=== PATIENT | female | born 1995 | race Caucasian/White ===

== ENCOUNTER → 2017-06-02 | Outpatient (CLI) | payer BC ==
--- NOTE | 2017-06-02 21:30 | MR ---
EXAMINATION TYPE: MR knee RT wo con DATE OF EXAM: 06/02/2017 COMPARISON: NONE HISTORY: Right knee pain and swelling for one year per patient. Unspecified internal derangement per order. TECHNIQUE: Multiplanar, multisequence images of the knee is performed without IV contrast. FINDINGS: MEDIAL MENISCUS: Anterior and posterior horns are intact without tear. LATERAL MENISCUS: Anterior and posterior horns are intact without tear. CRUCIATE LIGAMENTS: The anterior and posterior cruciate ligaments are intact and unremarkable. COLLATERAL LIGAMENTS: The medial collateral ligament and lateral collateral ligament complex are inta ct and unremarkable. EXTENSOR MECHANISM: Visualized quadriceps and patellar tendons are intact. EFFUSION: No significant suprapatellar joint effusion. POPLITEAL CYST: No popliteal/delaney cyst. TRICOMPARTMENT SPACES: Tricompartment joint spaces are preserved. No significant spurring is seen. CARTILAGE: Tricompartment articular cartilage is maintained. BONE MARROW SIGNAL: Slight heterogeneity of bone marrow signal intensity may reflect product of red m arrow reconversion. OTHER: No additional significant abnormality is appreciated. IMPRESSION: No meniscal or ligamentous tear is seen. No significant finding is identified to account for patient's symptoms.
== END ==
LOC: RADMRIMAIN 17:40
PROVIDERS: ATTEND Physician Assistant
DX: M23.91 Unspecified internal derangement of right knee (principal)

== ENCOUNTER 2018-08-08 11:25 | Emergency (ER) | payer BC ==
[2018-08-08 11:37] VITALS: RESP 18
[2018-08-08] MEDS ORDERED: SODIUM CHLORIDE 0.9% 1,000 ML IV STA ×2 (12:01)
[2018-08-08 12:34] LABS: Basophils % (A) 1 %; Eosinophils # (A) 0.1 k/uL (0-0.7); Eosinophils % (A) 2 %; HCT 41.4 % (34.0-46.0); HGB 13.6 gm/dL (11.4-16.0); Lymphocytes # (A) 1.3 k/uL (1.0-4.8); Lymphocytes % (A) 21 %; MCH 30.2 pg (25.0-35.0); MCHC 32.8 g/dL (31.0-37.0); MCV 91.9 fL (80.0-100.0); Mean Platelet Volume 8.6; Monocytes # (A) 0.3 k/uL (0-1.0); Monocytes % (A) 4 %; Neutrophils # (A) 4.3 k/uL (1.3-7.7); Neutrophils % (A) 71 %; Platelet Count 225 k/uL (150-450); RBC 4.51 m/uL (3.80-5.40); RDW 12.2 % (11.5-15.5); WBC 6.1 k/uL (3.8-10.6)
[2018-08-08 12:41] LABS: Appearance,Urine Clear (Clear); Bacteria,Urine Rare /hpf; Bilirubin,Urine Negative (Negative); Blood,Urine Trace (Negative); Color,Urine Yellow; Glucose,Urine (UA) Negative (Negative); Ketones,Urine 1+ (Negative); Leukocyte Esterase,Urine Negative (Negative); Mucus,Urine Occasional /hpf; Nitrite,Urine Negative (Negative); PH, Urine 5.5 (5.0-8.0); Protein,Urine Negative (Negative); RBC,Urine 1 /hpf (0-5); Specific Gravity,Urine 1.018 (1.001-1.035); Squamous Epithelial Cell,Urine 2 /hpf (0-4); Urobilinogen,Urine <2.0 mg/dL (<2.0); WBC,Urine 4 /hpf (0-5)
[2018-08-08 12:45] LABS: ALT 28 U/L (9-52); AST 28 U/L (14-36); Albumin 4.7 g/dL (3.5-5.0); Alkaline Phosphatase 54 U/L (38-126); Anion Gap 10 mmol/L; Blood Urea Nitrogen 9 mg/dL (7-17); Calcium 9.7 mg/dL (8.4-10.2); Carbon Dioxide 23 mmol/L (22-30); Chloride 105 mmol/L (98-107); D-Dimer <0.17 mg/L FEU (<0.60); Glucose 80 mg/dL (74-99); Partial Thromboplastin Time 23.6 sec (22.0-30.0); Phosphorus 3.6 mg/dL (2.5-4.5); Potassium 4.1 mmol/L (3.5-5.1); Prothrombin Time 9.9 sec (9.0-12.0); Sodium 138 mmol/L (137-145); Total Bilirubin 0.7 mg/dL (0.2-1.3)
[2018-08-08 12:51] LABS: Amphetamine Screen,Urine Not Detected (NotDetected); Barbiturate Screen,Urine Not Detected (NotDetected); Benzodiazepines Screen,Urine Detected (NotDetected); Cocaine Screen,Urine Not Detected (NotDetected); Methadone Screen, Urine Not Detected (NotDetected); Opiate Screen,Urine Not Detected (NotDetected); Oxycodone Screen, Urine Not Detected (NotDetected); Phencyclidine Screen,Urine Not Detected (NotDetected); Tricyclic Antidepressant,Urine Not Detected (NotDetected); Urn Cannabinoid Scrn Not Detected (NotDetected)
--- NOTE | 2018-08-08 13:03 | ED ---
Arrhythmia/Palpitations HPI - General Chief Complaint: Arrhythmia/Palpitations Stated Complaint: Palpitations Time Seen by Provider: 08/08/18 11:39 Source: patient, RN notes reviewed, old records reviewed Mode of arrival: ambulatory Limitations: no limitations - History of Present Illness Initial Comments: This is a 23-year-old female to the ER for evaluation. She presents today for evaluation regards to palpitations, feeling of her heart beating her chest being 100 chest. Patient's no prior history of similar complaint, denies drugs or alcohol. No recent weight loss awaking, no weight loss supplements, patient states her heart rate was noted in her clinic to be greater than 120. She is doesn't denies having this issue prior. Otherwise patient has no complaints of shortness of breath. There is racing heart valve MD Complaint: rapid heart beat, "heart racing", palpitations -: hour(s) (1) Context: occurred during rest Arrhythmia History: SVT Associated Symptoms: anxiety - Related Data Home Medications Medication Instructions Recorded Confirmed ALPRAZolam [Xanax] 0.5 mg PO DAILY PRN 08/08/18 08/08/18 Aviane 1 tab PO DAILY 08/08/18 08/08/18 Cyclobenzaprine [Flexeril] 5 mg PO BID PRN 08/08/18 08/08/18 Allergies Allergy/AdvReac Type Severity Reaction Status Date / Time Penicillins Allergy Unknown Verified 08/08/18 11:46 Childhood Review of Systems ROS Statement: Those systems with pertinent positive or pertinent negative responses have been documented in the HPI. ROS Other: All systems not noted in ROS Statement are negative. Past Medical History Past Medical History: No Reported History History of Any Multi-Drug Resistant Organisms: None Reported Past Surgical History: No Surgical Hx Reported, Orthopedic Surgery Past Psychological History: No Psychological Hx Reported Smoking Status: Never smoker Past Alcohol Use History: None Reported Past Drug Use History: None Reported General Exam Limitations: no limitations General appearance: alert, in no apparent distress, anxious Head exam: Present: atraumatic, normocephalic, normal inspection Eye exam: Present: normal appearance, PERRL, EOMI. Absent: scleral icterus, conjunctival injection, periorbital swelling ENT exam: Present: normal exam, mucous membranes moist Neck exam: Present: normal inspection. Absent: tenderness, meningismus, lymphadenopathy Respiratory exam: Present: normal lung sounds bilaterally. Absent: respiratory distress, wheezes, rales, rhonchi, stridor Cardiovascular Exam: Present: normal rhythm, tachycardia, normal heart sounds. Absent: systolic murmur, diastolic murmur, rubs, gallop, clicks GI/Abdominal exam: Present: soft, normal bowel sounds. Absent: distended, tenderness, guarding, rebound, rigid Extremities exam: Present: normal inspection, full ROM, normal capillary refill. Absent: tenderness, pedal edema, joint swelling, calf tenderness Back exam: Present: normal inspection Neurological exam: Present: alert, oriented X3, CN II-XII intact Psychiatric exam: Present: normal affect, normal mood Skin exam: Present: warm, dry, intact, normal color. Absent: rash Course Vital Signs 08/08/18 08/08/18 08/08/18 11:34 12:00 13:00 Temperature 97.9 F Pulse Rate 121 H 116 H 86 Respiratory 18 17 17 Rate Blood Pressure 127/83 113/79 116/82 O2 Sat by Pulse 98 98 Oximetry 08/08/18 14:00 Temperature Pulse Rate 95 Respiratory 18 Rate Blood Pressure 120/88 O2 Sat by Pulse Oximetry - Reevaluation(s) Reevaluation #1: 08/08/18 14:39 Medical record is reviewed Patient does admit taking occasional half Xanax for anxiety EKG Findings - EKG Comments: EKG Findings:: EKG shows sinus tachycardia rate 100, MI 160, QRS 80, QTC 447 Medical Decision Making - Medical Decision Making 23 female DEL with tachycardia, patient will follow-up with orthopedics regarding elevated heart rate sinus tachycardia. EKG otherwise within normal limits aside from tachycardia which is improved with hydration, lab work is normal and patient is ok for discharge home - Lab Data Result diagrams: 08/08/18 12:16 08/08/18 12:16 Lab Results 08/08/18 08/08/18 08/08/18 Range/Units 12:16 12:16 12:16 WBC 6.1 (3.8-10.6) k/uL RBC 4.51 (3.80-5.40) m/uL Hgb 13.6 (11.4-16.0) gm/dL Hct 41.4 (34.0-46.0) % MCV 91.9 (80.0-100.0) fL MCH 30.2 (25.0-35.0) pg MCHC 32.8 (31.0-37.0) g/dL RDW 12.2 (11.5-15.5) % Plt Count 225 (150-450) k/uL Neutrophils % 71 % Lymphocytes % 21 % Monocytes % 4 % Eosinophils % 2 % Basophils % 1 % Neutrophils # 4.3 (1.3-7.7) k/uL Lymphocytes # 1.3 (1.0-4.8) k/uL Monocytes # 0.3 (0-1.0) k/uL Eosinophils # 0.1 (0-0.7) k/uL Basophils # 0.0 (0-0.2) k/uL PT (9.0-12.0) sec INR (<1.2) APTT (22.0-30.0) sec D-Dimer (<0.60) mg/L FEU Sodium 138 (137-145) mmol/L Potassium 4.1 (3.5-5.1) mmol/L Chloride 105 (98-107) mmol/L Carbon Dioxide 23 (22-30) mmol/L Anion Gap 10 mmol/L BUN 9 (7-17) mg/dL Creatinine 0.55 (0.52-1.04) mg/dL Est GFR (CKD-EPI)AfAm >90 (>60 ml/min/1.73 sqM) Est GFR (CKD-EPI)NonAf >90 (>60 ml/min/1.73 sqM) Glucose 80 (74-99) mg/dL Plasma Lactic Acid Azam (0.7-2.0) mmol/L Calcium 9.7 (8.4-10.2) mg/dL Phosphorus 3.6 (2.5-4.5) mg/dL Magnesium 2.0 (1.6-2.3) mg/dL Total Bilirubin 0.7 (0.2-1.3) mg/dL AST 28 (14-36) U/L ALT 28 (9-52) U/L Alkaline Phosphatase 54 (38-126) U/L Total Creatine Kinase 81 (30-135) U/L CK-MB (CK-2) 0.3 (0.0-2.4) ng/mL CK-MB (CK-2) Rel Index 0.4 Troponin I <0.012 (0.000-0.034) ng/mL NT-Pro-B Natriuret Pep pg/mL Total Protein 8.0 (6.3-8.2) g/dL Albumin 4.7 (3.5-5.0) g/dL TSH (0.465-4.680) mIU/L Urine Color Urine Appearance (Clear) Urine pH (5.0-8.0) Ur Specific [place] (1.001-1.035) Urine Protein (Negative) Urine Glucose (UA) (Negative) Urine Ketones (Negative) Urine Blood (Negative) Urine Nitrite (Negative) Urine Bilirubin (Negative) Urine Urobilinogen (<2.0) mg/dL Ur Leukocyte Esterase (Negative) Urine RBC (0-5) /hpf Urine WBC (0-5) /hpf Ur Squamous Epith Cells (0-4) /hpf Urine Bacteria (None) /hpf Urine Mucus (None) /hpf Urine Opiates Screen (NotDetected) Ur Oxycodone Screen (NotDetected) Urine Methadone Screen (NotDetected) Ur Propoxyphene Screen (NotDetected) Ur Barbiturates Screen (NotDetected) U Tricyclic Antidepress (NotDetected) Ur Phencyclidine Scrn (NotDetected) Ur Amphetamines Screen (NotDetected) U Methamphetamines Scrn (NotDetected) U Benzodiazepines Scrn (NotDetected) Urine Cocaine Screen (NotDetected) U Marijuana (THC) Screen (NotDetected) 08/08/18 08/08/18 08/08/18 Range/Units 12:16 12:16 12:16 WBC (3.8-10.6) k/uL RBC (3.80-5.40) m/uL Hgb (11.4-16.0) gm/dL Hct (34.0-46.0) % MCV (80.0-100.0) fL MCH (25.0-35.0) pg MCHC (31.0-37.0) g/dL RDW (11.5-15.5) % Plt Count (150-450) k/uL Neutrophils % % Lymphocytes % % Monocytes % % Eosinophils % % Basophils % % Neutrophils # (1.3-7.7) k/uL Lymphocytes # (1.0-4.8) k/uL Monocytes # (0-1.0) k/uL Eosinophils # (0-0.7) k/uL Basophils # (0-0.2) k/uL PT 9.9 (9.0-12.0) sec INR 1.0 (<1.2) APTT 23.6 (22.0-30.0) sec D-Dimer <0.17 (<0.60) mg/L FEU Sodium (137-145) mmol/L Potassium (3.5-5.1) mmol/L Chloride (98-107) mmol/L Carbon Dioxide (22-30) mmol/L Anion Gap mmol/L BUN (7-17) mg/dL Creatinine (0.52-1.04) mg/dL Est GFR (CKD-EPI)AfAm (>60 ml/min/1.73 sqM) Est GFR (CKD-EPI)NonAf (>60 ml/min/1.73 sqM) Glucose (74-99) mg/dL Plasma Lactic Acid Azam 0.6 L (0.7-2.0) mmol/L Calcium (8.4-10.2) mg/dL Phosphorus (2.5-4.5) mg/dL Magnesium (1.6-2.3) mg/dL Total Bilirubin (0.2-1.3) mg/dL AST (14-36) U/L ALT (9-52) U/L Alkaline Phosphatase (38-126) U/L Total Creatine Kinase (30-135) U/L CK-MB (CK-2) (0.0-2.4) ng/mL CK-MB (CK-2) Rel Index Troponin I (0.000-0.034) ng/mL NT-Pro-B Natriuret Pep pg/mL Total Protein (6.3-8.2) g/dL Albumin (3.5-5.0) g/dL TSH (0.465-4.680) mIU/L Urine Color Yellow Urine Appearance Clear (Clear) Urine pH 5.5 (5.0-8.0) Ur Specific [place] 1.018 (1.001-1.035) Urine Protein Negative (Negative) Urine Glucose (UA) Negative (Negative) Urine Ketones 1+ H (Negative) Urine Blood Trace H (Negative) Urine Nitrite Negative (Negative) Urine Bilirubin Negative (Negative) Urine Urobilinogen <2.0 (<2.0) mg/dL Ur Leukocyte Esterase Negative (Negative) Urine RBC 1 (0-5) /hpf Urine WBC 4 (0-5) /hpf Ur Squamous Epith Cells 2 (0-4) /hpf Urine Bacteria Rare H (None) /hpf Urine Mucus Occasional H (None) /hpf Urine Opiates Screen Not Detected (NotDetected) Ur Oxycodone Screen Not Detected (NotDetected) Urine Methadone Screen Not Detected (NotDetected) Ur Propoxyphene Screen Not Detected (NotDetected) Ur Barbiturates Screen Not Detected (NotDetected) U Tricyclic Antidepress Not Detected (NotDetected) Ur Phencyclidine Scrn Not Detected (NotDetected) Ur Amphetamines Screen Not Detected (NotDetected) U Methamphetamines Scrn Not Detected (NotDetected) U Benzodiazepines Scrn Detected H (NotDetected) Urine Cocaine Screen Not Detected (NotDetected) U Marijuana (THC) Screen Not Detected (NotDetected) 08/08/18 08/08/18 Range/Units 12:16 12:16 WBC (3.8-10.6) k/uL RBC (3.80-5.40) m/uL Hgb (11.4-16.0) gm/dL Hct (34.0-46.0) % MCV (80.0-100.0) fL MCH (25.0-35.0) pg MCHC (31.0-37.0) g/dL RDW (11.5-15.5) % Plt Count (150-450) k/uL Neutrophils % % Lymphocytes % % Monocytes % % Eosinophils % % Basophils % % Neutrophils # (1.3-7.7) k/uL Lymphocytes # (1.0-4.8) k/uL Monocytes # (0-1.0) k/uL Eosinophils # (0-0.7) k/uL Basophils # (0-0.2) k/uL PT (9.0-12.0) sec INR (<1.2) APTT (22.0-30.0) sec D-Dimer (<0.60) mg/L FEU Sodium (137-145) mmol/L Potassium (3.5-5.1) mmol/L Chloride (98-107) mmol/L Carbon Dioxide (22-30) mmol/L Anion Gap mmol/L BUN (7-17) mg/dL Creatinine (0.52-1.04) mg/dL Est GFR (CKD-EPI)AfAm (>60 ml/min/1.73 sqM) Est GFR (CKD-EPI)NonAf (>60 ml/min/1.73 sqM) Glucose (74-99) mg/dL Plasma Lactic Acid Azam (0.7-2.0) mmol/L Calcium (8.4-10.2) mg/dL Phosphorus (2.5-4.5) mg/dL Magnesium (1.6-2.3) mg/dL Total Bilirubin (0.2-1.3) mg/dL AST (14-36) U/L ALT (9-52) U/L Alkaline Phosphatase (38-126) U/L Total Creatine Kinase (30-135) U/L CK-MB (CK-2) (0.0-2.4) ng/mL CK-MB (CK-2) Rel Index Troponin I (0.000-0.034) ng/mL NT-Pro-B Natriuret Pep 85 pg/mL Total Protein (6.3-8.2) g/dL Albumin (3.5-5.0) g/dL TSH 1.280 (0.465-4.680) mIU/L Urine Color Urine Appearance (Clear) Urine pH (5.0-8.0) Ur Specific [place] (1.001-1.035) Urine Protein (Negative) Urine Glucose (UA) (Negative) Urine Ketones (Negative) Urine Blood (Negative) Urine Nitrite (Negative) Urine Bilirubin (Negative) Urine Urobilinogen (<2.0) mg/dL Ur Leukocyte Esterase (Negative) Urine RBC (0-5) /hpf Urine WBC (0-5) /hpf Ur Squamous Epith Cells (0-4) /hpf Urine Bacteria (None) /hpf Urine Mucus (None) /hpf Urine Opiates Screen (NotDetected) Ur Oxycodone Screen (NotDetected) Urine Methadone Screen (NotDetected) Ur Propoxyphene Screen (NotDetected) Ur Barbiturates Screen (NotDetected) U Tricyclic Antidepress (NotDetected) Ur Phencyclidine Scrn (NotDetected) Ur Amphetamines Screen (NotDetected) U Methamphetamines Scrn (NotDetected) U Benzodiazepines Scrn (NotDetected) Urine Cocaine Screen (NotDetected) U Marijuana (THC) Screen (NotDetected) Disposition Clinical Impression: Tachycardia, Palpitations, Supraventricular tachycardia Disposition: HOME SELF-CARE Condition: Good Instructions: Heart Palpitations (ED), Tachycardia (ED) Is patient prescribed a controlled substance at d/c from ED?: No Referrals: Eduardo Amezcua MD [STAFF PHYSICIAN] - 1-2 days
[2018-08-08 13:21] LABS: Creatine Kinase 81 U/L (30-135)
[2018-08-08 13:34] LABS: Creatine Kinase MB 0.3 ng/mL (0.0-2.4); Troponin I <0.012 ng/mL (0.000-0.034)
[2018-08-08 16:07] VITALS: BP 115/82; PULSE 111; TEMP 98
== END 2018-08-08 16:07 | disposition home or self-care (01) ==
LOC: EC 11:25
DX: I47.1 Supraventricular tachycardia (principal); Z79.899 Other long term (current) drug therapy; Z88.0 Allergy status to penicillin
CPT/HCPCS: 36415; 80053; 80306; 81001; 82550; 82553; 83605; 83735; 83880; 84100; 84443; 84484; 85025; 85379; 85610; 85730; 87077; 87086; 87186; 93005; 96360; 96361; 99285

== ENCOUNTER 2021-10-21 16:29 | Emergency (ER) | payer BC, OTHER ==
[2021-10-21 18:22] VITALS: BP 121/78; PULSE 98; RESP 18; TEMP 98.4
--- NOTE | 2021-10-21 19:17 | XR ---
EXAMINATION TYPE: XR ankle complete RT DATE OF EXAM: 10/21/2021 COMPARISON: NONE HISTORY: Ankle pain TECHNIQUE: 3 views FINDINGS: Ankle mortise is anatomic. I see no fracture nor dislocation. Joint spaces are normal. IMPRESSION: Negative right ankle exam. No fracture.
--- NOTE | 2021-10-21 19:22 | ED ---
General Adult HPI - General Chief complaint: Extremity Injury, Lower Stated complaint: [facility] -rt ankle injury Time Seen by Provider: 10/21/21 18:20 Source: patient, RN notes reviewed, old records reviewed Mode of arrival: wheelchair Limitations: no limitations - History of Present Illness Initial comments: This is a 26-year-old female who presents emergency Department complaining of right lateral ankle pain. Patient states she stepped wrong and twisted her ankle and ever since then it hurts to try to step on so she has avoided. Patient denies any foot pain. Patient denies any knee pain or upper leg pain. Patient has no other issues this time. - Related Data Home Medications Medication Instructions Recorded Confirmed ALPRAZolam [Xanax] 0.5 mg PO DAILY PRN 08/08/18 08/08/18 Aviane 1 tab PO DAILY 08/08/18 08/08/18 Cyclobenzaprine [Flexeril] 5 mg PO BID PRN 08/08/18 08/08/18 Allergies Allergy/AdvReac Type Severity Reaction Status Date / Time Penicillins Allergy Unknown Verified 10/21/21 18:22 Childhood Review of Systems ROS Statement: Those systems with pertinent positive or pertinent negative responses have been documented in the HPI. ROS Other: All systems not noted in ROS Statement are negative. Past Medical History Past Medical History: No Reported History History of Any Multi-Drug Resistant Organisms: None Reported Past Surgical History: No Surgical Hx Reported, Orthopedic Surgery Past Psychological History: No Psychological Hx Reported Smoking Status: Never smoker Past Alcohol Use History: None Reported Past Drug Use History: None Reported General Exam - General Exam Comments Initial Comments: GENERAL Patient is well-developed and well-nourished. Patient is in mild distress. EYES Patient's pupils are equal and round. Extraocular motion is intact SKIN Unremarkable NEURO The patient is alert and oriented 3 PYSCH Patient has normal interpersonal interactions. MUSCULOSKELETAL There is some tenderness on the lateral malleolus is no tenderness or swelling in the medial malleolus. Patient has no swelling on the lateral malleolus. Patient has no tenderness at the base of the fifth metatarsal. Patient has no foot tenderness at all. Patient has no proximal leg tenderness. Limitations: no limitations Course Vital Signs 10/21/21 18:17 Temperature 98.4 F Pulse Rate 98 Respiratory 18 Rate Blood Pressure 121/78 O2 Sat by Pulse 98 Oximetry Medical Decision Making - Medical Decision Making Patient was placed in an air splint and given crutches to ambulate and weight- bear as tolerated. X-ray was negative for fractures.. Disposition Clinical Impression: Ankle sprain Disposition: HOME SELF-CARE Instructions (If sedation given, give patient instructions): Ankle Sprain (ED) Additional Instructions: Patient's take Motrin when necessary for pain Is patient prescribed a controlled substance at d/c from ED?: No Referrals: Brian Zelaya MD [Primary Care Provider] - 1-2 days Time of Disposition: 19:22
== END 2021-10-21 19:31 | disposition home or self-care (01) ==
LOC: EC 16:29
DX: S93.491A Sprain of other ligament of right ankle, initial encounter (principal); Z88.0 Allergy status to penicillin; X50.0XXA Overexertion from strenuous movement or load, initial encounter
CPT/HCPCS: 99283

== ENCOUNTER 2022-07-17 06:30 | Inpatient (IN) | payer BC, OTHER ==
[2022-07-17] MEDS: LACTATED RINGERS 1,000 ML IV SCH ×2 (07:00→14:28)
[2022-07-17] MEDS ORDERED: METHYLERGONOVINE 0.2 MG/ML 1 ML AMP IM PRN (07:20)
[2022-07-17] MEDS ORDERED: LIDOCAINE 0.5% (PF) 5 MG/ML (50 ML SDV) SQ PRN (07:20)
[2022-07-17] MEDS ORDERED: CARBOPROST TROMETHAMINE 250 MCG/ML 1 ML AMP IM PRN (07:20)
[2022-07-17] MEDS ORDERED: OXYTOCIN 10 UNIT/ML 1 ML VIAL IM PRN (07:20)
[2022-07-17] MEDS ORDERED: TERBUTALINE 1 MG/ML VIAL SQ PRN (07:20)
[2022-07-17] MEDS ORDERED: OXYTOCIN 30 UNITS/500 ML NS 30 UNIT in SALINE 1 500ML.BAG IV SCH ×2 (07:30→19:30)
[2022-07-17 07:57] LABS: Basophils # (A) 0.1 k/uL (0-0.2); Basophils % (A) 1 %; Eosinophils # (A) 0.2 k/uL (0-0.7); Eosinophils % (A) 2 %; HCT 38.3 % (34.0-46.0); HGB 12.6 gm/dL (11.4-16.0); Lymphocytes # (A) 1.9 k/uL (1.0-4.8); Lymphocytes % (A) 19 %; MCH 30.1 pg (25.0-35.0); MCV 91.2 fL (80.0-100.0); Mean Platelet Volume 12.9; Monocytes # (A) 0.7 k/uL (0-1.0); Monocytes % (A) 7 %; Neutrophils # (A) 6.9 k/uL (1.3-7.7); Neutrophils % (A) 69 %; RDW 13.4 % (11.5-15.5); WBC 9.9 k/uL (3.8-10.6)
[2022-07-17] MEDS ORDERED: BUTORPHANOL 1 MG/ML 1 ML VIAL IV PRN (08:58)
--- NOTE | 2022-07-17 09:03 | P.HPOB ---
History of Present Illness H&P Date: 07/17/22 Chief Complaint: 39+ weeks, elective induction the patient is a 27-year-old 1 para 0 admitted at 39-2/7 weeks as established by last menstrual period and confirmed by seven-week ultrasound. She is admitted for elective induction with all signs reassuring, category 1 heart rate tracing. Her has been entirely uncomplicated and group B strep status is negative. Obstetrical history: 1 para 0 with current statistics listed in history of present illness. EDC of 07/22/2022 was established by last menstrual period and confirmed by seven-week ultrasound. Laboratory workup done traits of blood type of A+ with a negative antibody screen. Rubella status is immune. Remainder of laboratory workup was within normal limits. One hour Glucola was elevated but followed by a normal three-hour glucose tolerance test. Group B strep status is negative. Gynecologic history: Unremarkable with no history of any infections to include STDs. Review of Systems review of systems is confined to history of present illness. Past Medical History Past Medical History: No Reported History History of Any Multi-Drug Resistant Organisms: None Reported Past Surgical History: No Surgical Hx Reported, Orthopedic Surgery Past Anesthesia/Blood Transfusion Reactions: No Reported Reaction Past Psychological History: No Psychological Hx Reported Smoking Status: Former smoker Past Alcohol Use History: None Reported Past Drug Use History: None Reported - Past Family History Father Family Medical History: No Reported History Sister(s) Additional Family Medical History / Comment(s): tethered spinal cord Medications and Allergies Home Medications Medication Instructions Recorded Confirmed Type Vit No.179/Iron/Folic 1 tab PO DAILY 04/21/22 04/21/22 History [ Tablet] Allergies Allergy/AdvReac Type Severity Reaction Status Date / Time Penicillins Allergy Unknown Verified 10/21/21 18:22 Childhood Exam Vital Signs Temp Pulse Resp BP Pulse Ox 07/17/22 07:07 97.5 F L 107 H 16 122/83 97 Intake and Output 07/16/22 07/17/22 07/17/22 22:59 06:59 14:59 Other: Weight 69.853 kg in general, this is a well-developed, well-nourished white female in no acute distress. Her heart has a regular rhythm and rate without murmur. Her lungs are clear to auscultation bilaterally in all patton. Her abdomen is gravid, nondistended, has normal active bowel sounds, soft, nontender, and without any palpable masses aside from the uterine fundus. Her extremities are without any cyanosis, clubbing, or significant edema and are nontender to palpation bilaterally. Digital cervical examination done Schutze cervix to 1-1/2 cm dilated, 60% effaced, with the vertex in presentation at -2 station. Artificial rupture of membranes is carried out demonstrating clear fluid. Results Result Diagrams: 07/17/22 07:30 Assessment and Plan (1) Term Current Visit: Yes Status: Acute Code(s): Z34.90 - ENCNTR FOR SUPRVSN OF NORMAL , UNSP, UNSP TRIMESTER SNOMED Code(s): 47396935 Plan: the patient is admitted for elective induction. Pitocin augmentation has been started and she has undergone artificial rupture of membranes. She will have close maternal and surveillance and expectant management will be practiced. She did candidate for either IV, epidural, or nitrous analgesia, whichever she may choose.
[2022-07-17 09:21] LABS: Platelet Count 132 k/uL (150-450)
[2022-07-17 09:22] LABS: Large Platelets Present; RBC Morphology Normal
[2022-07-17] MEDS ORDERED: CITRIC ACID-SODIUM CITRATE 15 ML CUP PO ONE (18:30)
[2022-07-17] MEDS ORDERED: KETOROLAC 15 MG/ML 1 ML VIAL IVP PRN (19:25)
[2022-07-17] MEDS ORDERED: METOCLOPRAMIDE 5 MG/ML 2 ML VIAL IVP PRN (19:25)
[2022-07-17] MEDS ORDERED: NALOXONE 0.4 MG/ML 1 ML VIAL IV PRN (19:25)
[2022-07-17] MEDS ORDERED: diphenhydrAMINE 50 MG CAP PO PRN (19:25)
[2022-07-17] MEDS ORDERED: ZOLPIDEM 5 MG TAB PO PRN (19:25)
[2022-07-17] MEDS ORDERED: ONDANSETRON 4 MG/2 ML VIAL IVP PRN ×2 (19:25→19:30)
[2022-07-17] MEDS ORDERED: diphenhydrAMINE 25 MG CAP PO PRN (19:25)
[2022-07-17] MEDS ORDERED: diphenhydrAMINE 50 MG/ML 1 ML VIAL IVP PRN ×3 (19:25→19:30)
[2022-07-17] MEDS ORDERED: LANOLIN CREAM 5 GM TUBE TOPICAL PRN (19:25)
[2022-07-17] MEDS ORDERED: LACTATED RINGERS 1,000 ML IV SCH (19:30)
[2022-07-17] MEDS ORDERED: MORPHINE SULFATE 2 MG/ML SYRINGE IVP PRN (19:30)
[2022-07-17] MEDS ORDERED: NALBUPHINE 10 MG/ML (1 ML AMP) IV PRN (19:30)
--- NOTE | 2022-07-17 19:32 | P.OP ---
Date of Procedure: 07/17/22 Preoperative Diagnosis: #1. 39-2/7 weeks, induction #2. Arrest of descent in the second stage #3. Suspected malposition Postoperative Diagnosis: same plus #4. occiput transverse position Procedure(s) Performed: primary low-transverse section Anesthesia: epidural Surgeon: Noah Noe Retrofit Installer #1: Kristopher Nayak Estimated Blood Loss (ml): 488 IV fluids (ml): 700 Urine output (ml): 50 Pathology: none sent Condition: stable Disposition: floor Operative Findings: the patient had been pushing very effectively for slightly more than an hour with no descent of the head below 0 station. She was felt to have a flat pubic arch and perhaps a contracted pelvic shape. Additionally, the fetus was thought to be in occiput transverse position. As there was no further descent, the decision was made to proceed to the operating room. She was taken there were she underwent primary low-transverse section was delivered of a viable 7 lbs. 3 oz. baby girl with Apgars of 9 at 1 minute and 9 at 5 minutes delivered in the left occiput transverse position. The placenta was delivered manually, intact, and grossly normal with a grossly normal three-vessel cord. The uterus, tubes, and ovaries were entirely normal to inspection. Description of Procedure: the patient was prepped and draped in usual fashion after epidural anesthesia was bolused by the anesthesiologist. A Pfannenstiel incision was made and extended into the abdominal cavity without difficulty. The bladder peritoneum was elevated, incised, and reflected distally. The head was encountered deep in the pelvis and was delivered up and through the incision where the nose and mouth were thoroughly suctioned. Remainder of the was delivered onto the field where the cord was doubly clamped, cut, and the passed resuscitative measures with weight and Apgars as noted above. A segment of cord was doubly clamped, cut, and set aside should cord gases become necessary. The placenta was delivered manually and intact as noted above. The uterus was exteriorized and the interior cavity of the uterus swept of any remaining placental or membranous fragments. The margins of the uterine incision were grasped with Fang clamps and the incision closed in 2 layers. The first layer was a running locking stitch of 0 chromic catgut followed by a running i mbricating layer of 0 chromic catgut, each from margin to margin. Any small points of bleeding were made hemostatic with the Bovie. The posterior cul-de-sac was then suctioned with a guard followed by laparotomy sponge. The uterus was replaced within the abdominal cavity after noting the normal uterine and ovarian findings. The gutters were swept of any remaining blood fluid or clot. The incision was reexamined and again any small points of bleeding were made hemostatic with the Bovie. After ensuring hemostasis, the parietal peritoneum was loosely reapproximated and layer of muscles examined and made hemostatic with the Bovie. The fascia was closed with 2 running stitches of 0 Vicryl proceeding from the lateral margins to the midpoint. Subcutaneous tissues were irrigated, made hemostatic with the Bovie, and reapproximated with 3 interrupted stitches of 30 plain catgut. The skin was reapproximated with a running subcuticular stitch of 4-0 Vicryl followed by half-inch Steri-Strips placed with Mastisol. Quantitative blood loss for the case was 488 ml. All sponge, instrument, and needle counts were correct. There were no compilations. The patient tolerated the procedure well and proceeded to the recovery room in stable condition. Both mother and are resting comfortably in recovery.
[2022-07-17] MEDS: ACETAMINOPHEN TAB 500 MG TAB PO SCH (21:57)
[2022-07-17] MEDS: SENNOSIDES-DOCUSATE SODIUM 1 EACH TAB PO SCH (21:58)
[2022-07-18] MEDS: IBUPROFEN 600 MG TAB PO SCH ×4 (02:02→20:54)
[2022-07-18] MEDS: ACETAMINOPHEN TAB 500 MG TAB PO SCH ×3 (04:14→17:31)
[2022-07-18] MEDS: SENNOSIDES-DOCUSATE SODIUM 1 EACH TAB PO SCH ×2 (08:00→20:55)
--- NOTE | 2022-07-18 08:04 | P.PNOBGPC ---
Subjective - Subjective Patient reports: Reports appetite normal, Reports voiding normally, Reports pain well controlled, Reports ambulating normally : doing well, nursing well Objective - Vital Signs Latest vital signs: Vital Signs Temp Pulse Resp BP Pulse Ox 07/18/22 06:00 16 07/18/22 04:00 98.1 F 92 16 117/76 96 07/18/22 02:00 16 96 07/18/22 00:30 96 07/18/22 00:00 98.3 F 83 16 122/83 96 07/17/22 22:30 16 07/17/22 21:37 97.3 F L 83 16 125/74 98 07/17/22 21:07 96 16 122/81 97 07/17/22 20:37 86 16 111/71 98 07/17/22 20:30 100 16 98 07/17/22 20:22 104 H 16 118/80 07/17/22 20:07 89 16 109/67 98 07/17/22 19:52 100 16 114/68 96 07/17/22 19:37 96.7 F L 98 16 105/60 94 L 07/17/22 19:30 96 Intake and Output 07/17/22 07/18/22 07/18/22 22:59 06:59 14:59 Intake Total 23.867 Output Total 708 650 Balance -684.133 -650 Intake: Intake, IV Titration 23.867 Amount Oxytocin 30 Units/500 ml 23.867 Ns 30 unit In Saline 1 500ml.bag @ Per Protocol IV .Q0M [facility] Rx#:[id number] Output: Urine 650 Uretheral (Hamm) 500 Output, Quantitative 708 Blood Loss Other: Voiding Method Indwelling Catheter Indwelling Catheter - Exam Extremities: Present: normal Abdomen: Present: normal appearance, soft. Absent: distention, tenderness Incision: Present: normal, dry, intact Uterus: Present: normal, firm (The uterine fundus as tonic and appropriately tender below the umbilicus.) - Labs Labs: Abnormal Lab Results - Last 24 Hours (Table) 07/17/22 Range/Units 07:30 Plt Count 132 L (150-450) k/uL Assessment and Plan (1) Term Current Visit: Yes Status: Acute Code(s): Z34.90 - ENCNTR FOR SUPRVSN OF NORMAL , UNSP, UNSP TRIMESTER SNOMED Code(s): 06685375 (2) S/P section Current Visit: Yes Status: Acute Code(s): Z98.891 - HISTORY OF UTERINE SCAR FROM PREVIOUS SURGERY SNOMED Code(s): 123862318 Plan: Continue routine and postoperative care. I have encouraged patient ambulating the hallways at least 4 times daily. Her diet has been advanced to regular. I would anticipate discharge home tomorrow pending no complications.
[2022-07-18 08:16] LABS: Basophils % (A) 0 %; Eosinophils # (A) 0.1 k/uL (0-0.7); Eosinophils % (A) 1 %; HCT 32.8 % (34.0-46.0); Lymphocytes # (A) 1.3 k/uL (1.0-4.8); Lymphocytes % (A) 8 %; MCH 30.6 pg (25.0-35.0); MCHC 33.5 g/dL (31.0-37.0); MCV 91.2 fL (80.0-100.0); Mean Platelet Volume 12.8; Monocytes # (A) 0.8 k/uL (0-1.0); Monocytes % (A) 5 %; Neutrophils # (A) 12.9 k/uL (1.3-7.7); Neutrophils % (A) 84 %; Platelet Count 126 k/uL (150-450); RBC 3.59 m/uL (3.80-5.40); RDW 13.8 % (11.5-15.5); WBC 15.3 k/uL (3.8-10.6)
[2022-07-18 09:02] LABS: Large Platelets Present
--- NOTE | 2022-07-18 10:27 | P.PN ---
Progress Note - Text Progress Note Date: 07/18/22 (0617) Anesthesia Postop day 1 Subjective: Status Post section with Duramorph. Patient seen and examined. Doing well complaining of mild pruritus. VAS 6-7 out of 10rest able and tolerable. No nausea or vomiting. Mild pruritus tolerable.. Denies fever. Gross lower extremity strength intact. Without apparent anesthetic complications. Objective: Vital signs reviewed Heart: Regular Rate Lungs: Good chest excursion Abdomen: Appears nondistended Assessment: Status post with Duramorph postop day 1 Plan: Continue current care with your medical management. Anticipated and the Duramorph around 9pm tonight, you may see increased pain needs around this time.
[2022-07-18] MEDS: SIMETHICONE 80 MG CHEWABLE PO PRN ×2 (13:49→22:46)
[2022-07-19] MEDS: ACETAMINOPHEN TAB 500 MG TAB PO SCH ×5 (00:30→20:35)
[2022-07-19] MEDS: LACTATED RINGERS 1,000 ML IV SCH ×2 (03:15→04:10)
[2022-07-19] MEDS: IBUPROFEN 600 MG TAB PO SCH ×4 (03:18→18:46)
[2022-07-19] MEDS: SENNOSIDES-DOCUSATE SODIUM 1 EACH TAB PO SCH ×2 (08:23→20:10)
--- NOTE | 2022-07-19 10:44 | P.PNOBGPC ---
Subjective - Subjective Patient reports: Reports appetite normal, Reports voiding normally, Reports pain well controlled, Reports ambulating normally : doing well, nursing well Objective - Vital Signs Latest vital signs: Vital Signs Temp Pulse Resp BP Pulse Ox 07/19/22 08:00 98 F 92 16 124/81 07/19/22 00:00 98.2 F 98 16 127/83 99 07/18/22 16:00 97.8 F 102 H 14 122/72 07/18/22 12:00 98.1 F 86 14 117/76 - Exam Extremities: Present: normal, edema (1-2+ bilateral lower extremity edema to around the knee.) Abdomen: Present: normal appearance, soft. Absent: distention, tenderness Incision: Present: normal, dry, intact Uterus: Present: normal, firm (uterine fundus is tonic inappropriately tender below the umbilicus.) Assessment and Plan (1) Term Current Visit: Yes Status: Acute Code(s): Z34.90 - ENCNTR FOR SUPRVSN OF NORMAL , UNSP, UNSP TRIMESTER SNOMED Code(s): 89791487 (2) S/P section Current Visit: Yes Status: Acute Code(s): Z98.891 - HISTORY OF UTERINE SCAR FROM PREVIOUS SURGERY SNOMED Code(s): 077731274 Plan: the is being treated with a bili light and will likely require observation for 24 more hours. As a result, we will continue routine and postoperative care with the anticipation of discharge home tomorrow pending complications.
[2022-07-20] MEDS: IBUPROFEN 600 MG TAB PO SCH ×3 (00:16→11:03)
[2022-07-20] MEDS: SIMETHICONE 80 MG CHEWABLE PO PRN (01:19)
[2022-07-20] MEDS: ACETAMINOPHEN TAB 500 MG TAB PO SCH (03:01)
--- NOTE | 2022-07-20 08:55 | P.DS ---
Providers Date of admission: 07/17/22 06:36 Expected date of discharge: 07/20/22 Attending physician: Noah Noe Primary care physician: Stated None - Discharge Diagnosis(es) (1) Term Current Visit: Yes Status: Acute (2) S/P section Current Visit: Yes Status: Acute Hospital Course: the patient is a 27-year-old 1 para 0 admitted at 39-2/7 weeks by good dating parameters perches admitted for an elective induction with all signs reassuring. Her was uncomplicated and group B strep status is negative. On labor and delivery, she had Pitocin started and underwent artificial rupture of membranes. She had an epidural catheter placed around the onset of the active phase of labor. She made progress throughout the day to complete and then pushed for some time with no descent of the station below 0 station and was noted to have the fetus in a probable malposition as well as having a somewhat contracted pelvis. She was taken the operating room where she was delivered of a viable 7 lbs. 3 oz. baby girl with Apgars of 9 at 1 minute and 9 at 5 minutes in the occiput transverse position. Her course was unremarkable vital signs remaining stable and her temperature was afebrile throughout. She was deemed stable for discharge on and postoperative day #3 is the required some treatment with bili lights. She was discharged home to follow-up in the office in 2 weeks for an incision check and 6 weeks routinely. Discharge instructions included calling for any significantly increased bleeding or foul-smelling lochia, significantly increased fever or abdominal pain, perineal complaints, breast complaints, incisional complaints, or anything else that concerned her. She was additionally instructed to have nothing in the vagina for at least 6 weeks time to include intercourse. She was instructed to do no heavy lifting over the same period of time. She is less instructed to do no driving until off of all pain medications or 2 weeks' time, whichever came first. She understood her instructions and agrees to follow up as noted above. Discharge medications included only [id number] analgesic pain medications as well as continued vitamins as she has opted to breast-feed. Maternal blood type is A+ and rubella status is immune. Discharge hemoglobin and hematocrit were 11.0 and 32.8 respectively. Procedures: #1. Pitocin induction #2. Artificial rupture of membranes #3. Epidural analgesia #4. Primary low-transverse section Patient Condition at Discharge: Stable Plan - Discharge Summary New Discharge Prescriptions: No Action Vit No.179/Iron/Folic [ Tablet] 1 tab PO DAILY Discharge Medication List Vit No.179/Iron/Folic [ Tablet] 1 tab PO DAILY 04/21/22 [History] Follow up Appointment(s)/Referral(s): Noah Noe MD [STAFF PHYSICIAN] - 2 Weeks Discharge Disposition: HOME SELF-CARE
[2022-07-20 09:48] VITALS: BP 130/79; PULSE 107; RESP 14; TEMP 98.4
[2022-07-20] MEDS: SENNOSIDES-DOCUSATE SODIUM 1 EACH TAB PO SCH (11:03)
== END 2022-07-20 15:30 | disposition home or self-care (01) | DRG 788 ==
LOC: 4FBP 06:36
PROVIDERS: ADMIT Obstetrics & Gynecology; ATTEND Obstetrics & Gynecology
PROC: 10907ZC Drainage of Amniotic Fluid, Therapeutic from Products of Conception, Via Natural or Artificial Opening (ICD-10-PCS; 2022-07-17)
PROC: 3E033VJ Introduction of Other Hormone into Peripheral Vein, Percutaneous Approach (ICD-10-PCS; 2022-07-17)
PROC: 4A0HXCZ Measurement of Products of Conception, Cardiac Rate, External Approach (ICD-10-PCS; 2022-07-17)
PROC: 10D00Z1 Extraction of Products of Conception, Low, Open Approach (ICD-10-PCS; principal; 2022-07-17 18:50)
DX: O32.4XX0 Maternal care for high head at term, not applicable or unspecified (principal); L29.9 Pruritus, unspecified; Z37.0 Single live birth; O99.73 Diseases of the skin and subcutaneous tissue complicating the puerperium; Z3A.39 39 weeks gestation of pregnancy; Z87.891 Personal history of nicotine dependence; O32.1XX0 Maternal care for breech presentation, not applicable or unspecified; Z88.0 Allergy status to penicillin
CPT/HCPCS: 85025; 86850; 86900; 86901